=== PATIENT | female | born 1930 | race Caucasian/White ===

== ENCOUNTER 2017-01-14 08:24 | Day surgery (SDC) | payer MEDICARE, OTHER ==
[~2017-01-14 08:24] MED LIST: Bupivacaine 0.5% 50 ML MDV ONE; Lidocaine 1% with EPINEPHrine 1:100,000 50 ML MDV ONE; Midazolam 1 MG/ML 2 ML SDV ONE; Propofol 200 MG/20 ML SDV ONE; fentaNYL 100 MCG/2 ML SDV ONE
[2017-01-14] MEDS ORDERED: Dextrose 5%-Lactated Ringers 1,000 ML IV SCH (09:00)
[2017-01-14] MEDS ORDERED: ceFAZolin 2 GM in Premix Bag 1 BAG IV ONE (09:00)
--- NOTE | 2017-01-14 10:34 | US ---
EXAM: (Post Procedure Digital Rt, Needle Placement Ltd Rt) HISTORY: ABNORMAL RT BREAST Informed consent was obtained. The skin was prepped in sterile fashion. 1% lidocaine was utilized as local anesthetic. A 25-gauge needle was subsequently placed into the 1.9 cm nodule located at 7:00. A spiration yielded fluid. The finding is consistent with a cyst with complete resolution. There is hyp oechoic irregular tissue slightly more anteriorly. A hook wire was placed through the middle of this tissue. Postprocedural mammograms demonstrate resolution of the previous noted nodule. The thick part of the wire is positioned within a collection of tissue noted to be hypoechoic and irregular on ultr asound. The patient tolerated the procedure well. Impression: 1. Cyst aspiration. 2. Wire localization of hypoechoic irregular tissue.
--- NOTE | 2017-01-14 13:21 | MY ---
EXAM: (Surgical Specimen Breast) HISTORY: RT BREAST SURG SPEC Surgical breast specimen. The surgical specimen contains the wire. Nonspecific breast tissue is demonstrated. Correlate with pe nding pathology results.
--- NOTE | 2017-01-17 15:01 | OR ---
DATE OF PROCEDURE: 01/14/2017 PREOPERATIVE DIAGNOSIS: Radiologically suspicious lesion, right breast. POSTOPERATIVE DIAGNOSIS: Radiologically suspicious lesion, right breast. OPERATIVE PROCEDURE: Excisional biopsy, right breast with preoperative ultrasound-guided needle localization ([id number]). ANESTHESIA: Local plus IV sedation. INDICATION FOR PROCEDURE: This is an 86-year-old female presenting with a complex area of abnormal radiologic findings in the lower aspect of the right breast. After preoperative evaluation and discussion, she wished to proceed with an excision of that area with preoperative needle ultrasound localization. Potential risks including bleeding, infection, cosmetic deformity, need for additional treatment, should a malignancy be identified, were reviewed with the patient, and she wishes to proceed. DETAILS OF PROCEDURE: The patient was taken to the operating room and placed in a supine position. IV sedation was administered after which the needle localization was once again confirmed to be in place and the right breast and surrounding area was prepped and draped. Fluoroscopy was then used to identify the optimal point of incision and that area was anesthetized with 1% lidocaine mixed with Marcaine. A transversely oriented incision along the lower aspect of the right breast was then made and carried down through the skin and subcutaneous tissue. The area of concern was located more or less around the stiffener of the needle, and that soft tissue was then excised. This contained some fairly dense fibrocystic disease, but not an obviously hard overtly malignant lesion. Imaging confirmed adequate removal of the area of concern. Palpation of the surrounding area showed no additional areas of concern. The incision was then inspected for hemostasis and closed with 3-0 and 4-0 Vicryl stitch deep and 4-0 Vicryl subcuticular stitch. Dressing was applied. The patient was taken to the recovery room in satisfactory condition. Raffy Cervantes MD /[id number]
== END 2017-01-14 14:19 | disposition home or self-care (01) ==
LOC: JP.SDS 08:24
PROVIDERS: ATTEND Surgery
DX: N60.91 Unspecified benign mammary dysplasia of right breast (principal); I10 Essential (primary) hypertension; E11.9 Type 2 diabetes mellitus without complications; Z88.8 Allergy status to other drugs, medicaments and biological substances
CPT/HCPCS: 19125; 76098; 76942; G0206; J0690; J2250; J2704; J3010; J7042; 88305; 88341; 88342

== ENCOUNTER 2021-09-21 07:33 | Observation (INO) | payer MEDICARE, BC ==
[2021-09-21] MEDS ORDERED: Sodium Chloride 0.9% 10 ML Syringe FLUSH PRN (07:36)
[2021-09-21] MEDS ORDERED: Dextrose 5%-Lactated Ringers 1,000 ML IV SCH (07:45)
[2021-09-21 08:15] LABS: ESTIMATED GFR 43 mL/min (>60)
[2021-09-21] MEDS ORDERED: Acetaminophen 1,000 MG in Premix Bag 1 BAG IV ONE (11:11)
[2021-09-21] MEDS ORDERED: Magnesium Hydroxide 400 MG/5 ML Susp 30 ML Cup PO PRN (13:18)
[2021-09-21] MEDS ORDERED: Ondansetron 4 MG Tab.DIS PO PRN (13:18)
[2021-09-21] MEDS ORDERED: Ibuprofen 600 MG Tab PO PRN (13:18)
[2021-09-21] MEDS ORDERED: Melatonin 3 MG Tab PO PRN (13:18)
[2021-09-21] MEDS ORDERED: Ondansetron 4 MG/2 ML SDV IV PRN (13:18)
[2021-09-21] MEDS: traMADol 50 MG Tab PO PRN ×2 (13:51→19:58)
[2021-09-21] MEDS ORDERED: Polyethylene Glycol 3350 Powder 17 GM Packet PO ONE (14:00)
[2021-09-21] MEDS ORDERED: Albuterol 8 GM Inhaler INH PRN (14:03)
[2021-09-21] MEDS: Albuterol 0.083% 2.5 MG/3 ML Neb Soln NEB PRN ×2 (17:00→21:13)
[2021-09-21] MEDS: Dimethicone 20%/Zinc Oxide 25% 56 GM Spray Bottle TOP PRN (19:54)
[2021-09-21] MEDS: Calcium Carbonate/Vitamin D3 1500 MG-400 Units Tab PO SCH (20:00)
[2021-09-21] MEDS: GEMFIBROZIL 600 MG PO SCH (20:00)
[2021-09-21] MEDS: Acetaminophen 500 MG Tab PO SCH (20:00)
[2021-09-22] MEDS: Albuterol 0.083% 2.5 MG/3 ML Neb Soln NEB PRN ×3 (01:13→14:06)
[2021-09-22] MEDS: traMADol 50 MG Tab PO PRN ×3 (02:05→22:48)
[2021-09-22] MEDS: Dimethicone 20%/Zinc Oxide 25% 56 GM Spray Bottle TOP PRN (07:16)
[2021-09-22] MEDS: Ibuprofen 400 MG Tab PO PRN (07:25)
[2021-09-22] MEDS: Calcium Carbonate/Vitamin D3 1500 MG-400 Units Tab PO SCH ×2 (08:59→20:27)
[2021-09-22] MEDS: ROSUVASTATIN 10 MG PO SCH (08:59)
[2021-09-22] MEDS: Aspirin 81 MG Tab.EC PO SCH (08:59)
[2021-09-22] MEDS: METFORMIN 500 MG PO SCH ×2 (08:59→20:27)
[2021-09-22] MEDS: Acetaminophen 500 MG Tab PO SCH ×3 (09:00→20:29)
[2021-09-22] MEDS: GEMFIBROZIL 600 MG PO SCH ×2 (09:00→20:28)
[2021-09-22] MEDS: Multivitamins with Iron/Calcium/Folic Acid/Minerals Tab PO SCH (09:00)
[2021-09-22] MEDS ORDERED: LISINOPRIL 5 MG PO SCH (09:00)
[2021-09-22] MEDS: Cholecalciferol (Vitamin D3) 25 MCG Tab PO SCH (09:01)
[2021-09-22] MEDS: LISINOPRIL 5 MG PO SCH (20:28)
[2021-09-23] MEDS: Albuterol 0.083% 2.5 MG/3 ML Neb Soln NEB PRN ×2 (02:10→21:17)
[2021-09-23] MEDS: Ibuprofen 400 MG Tab PO PRN ×2 (02:16→08:32)
[2021-09-23] MEDS: Acetaminophen 500 MG Tab PO SCH ×3 (08:34→21:00)
[2021-09-23] MEDS: METFORMIN 500 MG PO SCH ×2 (08:35→21:03)
[2021-09-23] MEDS: GEMFIBROZIL 600 MG PO SCH ×2 (08:36→21:02)
[2021-09-23] MEDS: ROSUVASTATIN 10 MG PO SCH (08:37)
[2021-09-23] MEDS: Aspirin 81 MG Tab.EC PO SCH (08:38)
[2021-09-23] MEDS: Calcium Carbonate/Vitamin D3 1500 MG-400 Units Tab PO SCH ×2 (08:38→21:00)
[2021-09-23] MEDS: Cholecalciferol (Vitamin D3) 25 MCG Tab PO SCH (08:40)
[2021-09-23] MEDS: Multivitamins with Iron/Calcium/Folic Acid/Minerals Tab PO SCH (08:40)
[2021-09-23] MEDS: traMADol 50 MG Tab PO PRN ×2 (14:49→21:07)
[2021-09-23] MEDS: LISINOPRIL 5 MG PO SCH (21:02)
[2021-09-24] MEDS: Albuterol 0.083% 2.5 MG/3 ML Neb Soln NEB PRN (04:08)
[2021-09-24] MEDS: traMADol 50 MG Tab PO PRN (04:23)
[2021-09-24] MEDS: METFORMIN 500 MG PO SCH (08:30)
[2021-09-24] MEDS: Calcium Carbonate/Vitamin D3 1500 MG-400 Units Tab PO SCH (08:30)
[2021-09-24] MEDS: ROSUVASTATIN 10 MG PO SCH (08:31)
[2021-09-24] MEDS: GEMFIBROZIL 600 MG PO SCH (08:32)
[2021-09-24] MEDS: Aspirin 81 MG Tab.EC PO SCH (08:32)
[2021-09-24] MEDS: Acetaminophen 500 MG Tab PO SCH (08:33)
[2021-09-24] MEDS: Multivitamins with Iron/Calcium/Folic Acid/Minerals Tab PO SCH (08:33)
[2021-09-24] MEDS: Cholecalciferol (Vitamin D3) 25 MCG Tab PO SCH (08:34)
== END 2021-09-24 11:00 | disposition home or self-care (01) ==
LOC: JP.ED 07:33 → JP.MS 11:52
PROVIDERS: ADMIT Internal Medicine; ATTEND Internal Medicine
DX: E11.649 Type 2 diabetes mellitus with hypoglycemia without coma (principal); G89.29 Other chronic pain; R33.9 Retention of urine, unspecified; I12.9 Hypertensive chronic kidney disease with stage 1 through stage 4 chronic kidney disease, or unspecified chronic kidney disease; M47.816 Spondylosis without myelopathy or radiculopathy, lumbar region; K42.9 Umbilical hernia without obstruction or gangrene; E78.00 Pure hypercholesterolemia, unspecified; N18.31 Chronic kidney disease, stage 3a; Z79.899 Other long term (current) drug therapy; Z79.82 Long term (current) use of aspirin; Z79.84 Long term (current) use of oral hypoglycemic drugs; Z88.8 Allergy status to other drugs, medicaments and biological substances; Z88.5 Allergy status to narcotic agent; Z98.890 Other specified postprocedural states; Z20.822 Contact with and (suspected) exposure to COVID-19
CPT/HCPCS: 36415; 51701; 72070; 72146; 72148; 74176; 80048; 80053; 81001; 82947; 83605; 85025; 86140; 94640; 96361; 96365; 97110; 97161; 99285; A9270; G0378; J0131; J3490; J7121; U0002; 99284

== ENCOUNTER 2021-12-05 18:11 | Emergency (ER) | payer MEDICARE, BC ==
[2021-12-05] MEDS: Bacitracin Oint 1 GM U/D Packet TOP ONE (19:30)
== END 2021-12-05 19:40 | disposition home or self-care (01) ==
LOC: JP.ED 18:11
DX: S31.119A Laceration without foreign body of abdominal wall, unspecified quadrant without penetration into peritoneal cavity, initial encounter (principal); I10 Essential (primary) hypertension; E11.9 Type 2 diabetes mellitus without complications; Z88.8 Allergy status to other drugs, medicaments and biological substances; Z88.5 Allergy status to narcotic agent; Z79.899 Other long term (current) drug therapy; Z90.710 Acquired absence of both cervix and uterus
CPT/HCPCS: 12002; 99282